=== PATIENT | male | born 1975 | race African-American/Black ===

== ENCOUNTER 2017-06-06 20:08 | Emergency (ER) | payer OTHER ==
[~2017-06-06] VITALS: Ht 188 cm; Wt 145.1 kg
--- NOTE | ~2017-06-06 | CT4 ---
[facility] A Service of [facility] RADIOLOGY TEXT RESULTS PATIENT: YOLANDA CUEVA LOCATION: SED : 71 UNIT #: [id number] AGE: [address]: Aparna Carvajal SEX: M ORDER DR: [id number] [address] [address] [id number] E MR#: [id number] Acc #: [id number] NAME: YOLANDA CUEVA : 1975 SEX: M STUDY DATE/TIME: 06/06/2017 22:01 UNIT: SED ROOM: STUDY DESCRIPTION: CT Abd and Pelv Wo Cont Attending Physician: Aparna Carvajal Pa-C Ordering Physician: Aparna Carvajal Pa-C Primary Care Physician: No Primary Care Physician MEDICAL IMAGING REPORT This report is preliminary unless electronic signature is present. EXAMINATION CT of abdomen and pelvis, without contrast. DATE 06/06/2017 HISTORY Neck pain onset yesterday. No known injury. History of kidney stones. COMPARISON CT abdomen and pelvis without contrast, 04/28/2017. PROCEDURE 3 mm noncontrast axial images through the abdomen and pelvis. Enteric contrast not administered. Sagittal and coronal reformatted images were obtained. This CT exam was performed with one or more of the following radiation dose reduction techniques: automatic exposure control, adjustment of mA and/or kV according to patient size, and iterative reconstruction. FINDINGS ABDOMEN FINDINGS: Incompletely imaged calcified granuloma in the left lower lobe. No acute basilar consolidations are identified. Gallbladder is contracted. No pericholecystic inflammation is seen. The liver, spleen, pancreas, adrenals and kidneys are normal. No right or left renal or ureteral calculi, hydronephrosis, hydroureter or perinephric inflammation is seen. Limited evaluation of bowel due to lack of enteric contrast but no focal bowel inflammation is identified. Appendix appears normal. PELVIS FINDINGS: Urinary bladder, prostate and rectum are normal. No pelvic adenopathy or free fluid. Tiny left pelvic phleboliths [facility] A Service of [facility] RADIOLOGY TEXT RESULTS PATIENT: YOLANDA CUEVA LOCATION: SED : 73 UNIT #: [id number] AGE: [address]: Aparna Carvajal SEX: M ORDER DR: incidentally noted. Facet arthropathy is present at L4-5, greatest on the left. No acute osseous abnormalities. IMPRESSION 1. No acute findings in the abdomen or pelvis. There is no CT explanation for the patient's left flank pain. 2. No urinary tract stone or hydronephrosis. 3. The appendix is normal. Dictated by... Salena Choi M.D. THIS IS AN ELECTRONICALLY VERIFIED REPORT Salena Choi M.D. at 06/07/2017 9:39 PM JOSE ANGEL/lópez TD: 06/07/2017 15:12 JOB #: [id number] MEDICAL IMAGING REPORT Page 1 of 1
[~2017-06-06 20:08] MED LIST: AMOXICILLIN PO; PHENERGAN25 MG PO; VICODIN PO
[2017-06-06 21:24] LABS: URINE SOURCE CLEAN CATCH
[2017-06-06 21:26] LABS: URINE APPEARANCE CLEAR; URINE BILIRUBIN NEG (NEG); URINE BLOOD TRACE-INTACT (NEG); URINE COLOR YELLOW; URINE GLUCOSE NEG (NORM); URINE KETONE TRACE (NEG); URINE LEUKOCYTE ESTERASE NEG (NEG); URINE NITRATE NEG (NEG); URINE PROTEIN NEG (NEG); URINE SPECIFIC GRAVITY 1.025 (1.003-1.035)
[2017-06-06 21:31] LABS: CULTURE INDICATED? NO; MICRO INDICATED? YES; URINE BACTERIA NEG (NEG); URINE SQUAMOUS EPITHELIAL CELL OCCAS /[HPF]
[2017-06-06 21:32] LABS: URINE MUCUS PRESENT
[2017-07-12] MEDS ORDERED: SPIRIVA18 MCG
[2017-07-12] MEDS ORDERED: ZOFRAN ODT4 M1
[2017-07-12] MEDS ORDERED: NORCO 7.5-3251 EACH
== END 2017-06-06 23:06 | disposition home or self-care (01) ==
LOC: SED 20:08
PROVIDERS: Physician Assistant Medical
DX: R10.9 Unspecified abdominal pain (principal); F17.210 Nicotine dependence, cigarettes, uncomplicated; Z87.442 Personal history of urinary calculi
CPT/HCPCS: 36415; 74176; 81003; 96372; 96374; 96375; 99284; J1885; J2360; J2405

== ENCOUNTER → 2017-06-17 | Outpatient (CLI) | payer OTHER ==
[~2017-06-17] MED LIST changes: +ALBUTEROL17 GM; +FISH OIL300 MG; +NEURONTIN600 MG; +NORCO 7.5-3251 EACH; +SPIRIVA18 MCG; +ZOFRAN ODT4 M1
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
--- NOTE | ~2017-06-17 | CR150 ---
[facility]. [facility] A Service of [facility] & [facility] RADIOLOGY TEXT RESULTS PATIENT: YOLANDA CUEVA LOCATION: [facility] : 73 UNIT #: [id number] AGE: [address]: Dequan Ames MD SEX: M ORDER DR: [id number] [place] [id number] O MR#: [id number] Acc #: [id number] NAME: YOLANDA CUEVA : 1975 SEX: M STUDY DATE/TIME: 06/17/2017 16:25 UNIT: SRAD ROOM: STUDY DESCRIPTION: CR Hip Min 2 Views Lt Attending Physician: Dequan Ames M.D. Ordering Physician: Dequan Ames M.D. Primary Care Physician: Dequan Ames M.D. MEDICAL IMAGING REPORT This report is preliminary unless electronic signature is present. EXAM Left hip, 2 views, 06/17/2017. HISTORY Left hip pain for 3 years. No known injury. FINDINGS Two views of the left hip demonstrate no fracture. There is degenerative change with axial narrowing of the left hip joint. The bones are normally mineralized. There is no soft tissue abnormality. IMPRESSION Degenerative change left hip. No acute abnormality. Dictated by... Maykel Velasco M.D. THIS IS AN ELECTRONICALLY VERIFIED REPORT Maykel Velasco M.D. at 06/18/2017 10:21 AM WINSTON/marco TD: 06/18/2017 06:45 JOB #: [id number] MEDICAL IMAGING REPORT Page 1 of 1
--- NOTE | ~2017-06-17 | CR169 ---
[facility]. [facility] A Service of [facility] & [facility] RADIOLOGY TEXT RESULTS PATIENT: YOLANDA CUEVA LOCATION: [facility] : 73 UNIT #: [id number] AGE: [address]: Dequan Ames MD SEX: M ORDER DR: [id number] [place] [id number] O MR#: [id number] Acc #: [id number] NAME: YOLANDA CUEVA : 1975 SEX: M STUDY DATE/TIME: 06/17/2017 16:25 UNIT: SRAD ROOM: STUDY DESCRIPTION: CR Knee 2 Views Lt Attending Physician: Dequan Ames M.D. Ordering Physician: Dequan Ames M.D. Primary Care Physician: Dequan Ames M.D. MEDICAL IMAGING REPORT This report is preliminary unless electronic signature is present. EXAM Left knee 2 views 06/17/2017. HISTORY Left knee pain for 3 years. No known injury. FINDINGS Three views of the left knee demonstrate no fracture. Small osteophytes extend off the tibial plateau, the medial femoral condyle and the posterior aspect of the patella. The bones are normally mineralized. There is no soft tissue abnormality. IMPRESSION Minimal degenerative change left knee. No acute abnormality. Dictated by... Maykel Velasco M.D. THIS IS AN ELECTRONICALLY VERIFIED REPORT Maykel Velasco M.D. at 06/18/2017 10:21 AM WINSTON/kevin TD: 06/18/2017 06:48 JOB #: [id number] MEDICAL IMAGING REPORT Page 1 of 1
== END | disposition home or self-care (01) ==
LOC: SRAD 15:53
DX: M25.562 Pain in left knee (principal); M43.16 Spondylolisthesis, lumbar region; M47.896 Other spondylosis, lumbar region; M16.12 Unilateral primary osteoarthritis, left hip; M25.552 Pain in left hip; M54.5 Low back pain
CPT/HCPCS: 72100; 73502; 73560

== ENCOUNTER 2017-07-02 13:11 | Emergency (ER) | payer OTHER ==
--- NOTE | ~2017-07-02 | CT4 ---
[facility] A Service of [facility] RADIOLOGY TEXT RESULTS PATIENT: YOLANDA CUEVA LOCATION: SED : 71 UNIT #: [id number] AGE: [address]: Robbie Cotton MD SEX: M ORDER DR: [id number] [place] [id number] E MR#: [id number] Acc #: [id number] NAME: YOLANDA CUEVA : 1975 SEX: M STUDY DATE/TIME: 07/02/2017 14:43 UNIT: SED ROOM: STUDY DESCRIPTION: CT Abd and Pelv Wo Cont Attending Physician: Robbie Cotton M.D. Ordering Physician: Robbie Cotton M.D. Primary Care Physician: Dequan Ames M.D. MEDICAL IMAGING REPORT This report is preliminary unless electronic signature is present. EXAM Abdomen and pelvis CT without contrast HISTORY Right-sided renal colic and vomiting. Pain radiates to the right groin. Symptoms began 1 hour prior to arrival. TECHNIQUE Axial images were obtained through the abdomen and pelvis without contrast and compared with 06/06/2017. This CT exam was performed with one or more of the following radiation dose reduction techniques: Automatic exposure control, adjustment of mA and/or kV according to patient size, and iterative reconstruction. FINDINGS Diffuse fatty infiltration of the liver is again noted. The spleen, pancreas and adrenal glands are unremarkable. The left kidney shows no evidence of intrarenal stones or hydronephrosis. On the right side, there is a probable tiny calcification seen at the right ureterovesical junction. It measures about 1 mm in diameter. The right ureter is mildly prominent. The right collecting system in the kidney is borderline prominent. There is no evidence of retroperitoneal adenopathy or ascites. The appendix is normal. No inflammatory changes are seen elsewhere in the abdomen or pelvis. IMPRESSION 1. Probable 1-mm stone at the right UVJ. The right ureter is mildly prominent and the collecting system of the right kidney is borderline. 2. No acute or inflammatory changes elsewhere. Normal appendix. 3. Hepatic steatosis. [facility] A Service of [facility] RADIOLOGY TEXT RESULTS PATIENT: YOLANDA CUEVA LOCATION: SED : 71 UNIT #: [id number] AGE: [address]: Robbie Cotton MD SEX: M ORDER DR: Dictated by... Yolanda Ambrose M.D. THIS IS AN ELECTRONICALLY VERIFIED REPORT Yolanda Ambrose M.D. at 07/03/2017 4:55 PM RLF/andrae TD: 07/02/2017 21:13 JOB #: [id number] MEDICAL IMAGING REPORT Page 1 of 1
[~2017-07-02 13:11] MED LIST changes: -ALBUTEROL17 GM; -FISH OIL300 MG; -NEURONTIN600 MG; -NORCO 7.5-3251 EACH; -SPIRIVA18 MCG; -ZOFRAN ODT4 M1
[2017-07-02 14:03] LABS: BASOPHIL# 0.1 X10e3 (0-0.3); BASOPHIL% 0.5 % (0-2.5); EOSINOPHIL# 0.2 X10e3 (0-0.7); EOSINOPHIL% 1.8 % (0.0-7.0); HEMATOCRIT 46.3 % (38.0-50.0); HEMOGLOBIN 15.6 gm/dL (13.0-16.0); LYMPHOCYTE% 38.5 % (17.0-45.0); MEAN CELL VOLUME 94.3 FL (83-96); MEAN CORPUSCULAR HEMOGLOBIN 31.8 PG (28-34); MEAN CORPUSCULAR HGB CONC 33.7 g/dL (30-36); MEAN PLATELET VOLUME 8.6 FL (6.5-11.5); MONOCYTE% 9.1 % (3.0-12.0); NEUTROPHIL# 5.2 X10e3 (1.5-7.1); NEUTROPHIL% 50.1 % (40-75); PLATELET COUNT 252 X10e3 (140-420); RED BLOOD COUNT 4.91 X10e (3.90-5.60); RED CELL DISTRIBUTION WIDTH 13.2 % (11.0-15.5); WHITE BLOOD COUNT 10.4 X10e3 (4.0-10.5)
[2017-07-02 14:14] LABS: URINE APPEARANCE CLEAR; URINE BILIRUBIN NEG (NEG); URINE BLOOD 2+ (NEG); URINE COLOR YELLOW; URINE GLUCOSE NEG (NORM); URINE KETONE NEG (NEG); URINE LEUKOCYTE ESTERASE NEG (NEG); URINE NITRATE NEG (NEG); URINE PROTEIN NEG (NEG); URINE SPECIFIC GRAVITY >=1.030 (1.003-1.035); URINE UROBILINOGEN 0.2 MG/DL (NORM)
[2017-07-02 14:16] LABS: DIFF IND NO
[2017-07-02 14:23] LABS: BUN/CREATININE RATIO 14.54; CREATININE SERUM 1.1 mg/dL (0.6-1.4); GLOM FILT RATE Estimated 94.8 mL/min (>60); POTASSIUM 4.2 mmol/L (3.5-5.1)
[2017-07-02 14:27] LABS: MICRO INDICATED? YES; URINE SOURCE CLEAN CATCH
[2017-07-02 17:19] LABS: CULTURE INDICATED? NO; URINE BACTERIA NEG (NEG); URINE WBC 0-2 /[HPF] (0-5)
[2017-07-12] MEDS ORDERED: SPIRIVA18 MCG
[2017-07-12] MEDS ORDERED: NORCO 7.5-3251 EACH
[2017-07-12] MEDS ORDERED: ZOFRAN ODT4 M1
== END 2017-07-02 17:08 | disposition home or self-care (01) ==
LOC: SED 13:11
PROVIDERS: Emergency Medicine
DX: N20.1 Calculus of ureter (principal); F17.200 Nicotine dependence, unspecified, uncomplicated
CPT/HCPCS: 36415; 74176; 80048; 81003; 85025; 96361; 96374; 96375; 96376; 99284; J1170; J1885

== ENCOUNTER 2017-07-12 23:42 | Emergency (ER) | payer OTHER ==
[~2017-07-12] VITALS: Ht 182.9 cm; Wt 165.6 kg
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
[~2017-07-12 23:42] MED LIST changes: +NORCO 7.5-3251 EACH; +SPIRIVA18 MCG; +ZOFRAN ODT4 M1
[2017-07-12] MEDS ORDERED: NEURONTIN600 MG (23:59)
[2017-07-12] MEDS ORDERED: ALBUTEROL17 GM (23:59)
[2017-07-12] MEDS ORDERED: FISH OIL300 MG (23:59)
== END 2017-07-13 02:29 | disposition home or self-care (01) ==
LOC: SED 23:42
DX: S13.4XXA Sprain of ligaments of cervical spine, initial encounter (principal); S50.02XA Contusion of left elbow, initial encounter; S80.02XA Contusion of left knee, initial encounter; S20.219A Contusion of unspecified front wall of thorax, initial encounter; S40.812A Abrasion of left upper arm, initial encounter; J44.9 Chronic obstructive pulmonary disease, unspecified; I10 Essential (primary) hypertension; F17.210 Nicotine dependence, cigarettes, uncomplicated; V49.40XA Driver injured in collision with unspecified motor vehicles in traffic accident, initial encounter; Y92.410 Unspecified street and highway as the place of occurrence of the external cause; Z23 Encounter for immunization
CPT/HCPCS: 71010; 72040; 72072; 73080; 73562; 90471; 90715; 99284